=== PATIENT | female | born 1985 | race Caucasian/White ===

== ENCOUNTER 2017-07-02 11:14 | Emergency (ER) | payer BC ==
[2017-07-02 11:27] VITALS: BP 132/79
--- NOTE | 2017-07-02 11:57 | EDM.PDOC ---
ED HPI GENERAL MEDICAL PROBLEM - General Chief Complaint: Allergic Reaction Stated Complaint: Hives Time Seen by Provider: 07/02/17 11:40 Source of Information: Reports: Patient, RN Notes Reviewed History Limitations: Reports: No Limitations - History of Present Illness INITIAL COMMENTS - FREE TEXT/NARRATIVE: 31 year old female presents to the ED with complaints of itching to her chest, back, and upper extremities. The symptoms started yesterday. She just finished a 10 day course of Bactrim DS for otitis externa. She denies history of allergy to sulfa antibiotics. She reports eating crab on Monday night and sitting in a hot tub on Monday. She has no symptoms to her lower extremities. She denies throat swelling, difficulty swallowing, shortness of breath, or wheezing. 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 cleft lip- mom. paralyzed palate- sister Other Musculoskeletal Family History: chondro sarcoma- sister Oncologic: Reports: Prostate Other Oncologic Family History: father - Tobacco Use Smoking Status *Q: Never Smoker Second Hand Smoke Exposure: No - Alcohol Use Days Per Week of Alcohol Use: 0 - Recreational Drug Use Recreational Drug Use: No ED ROS ALLERGIC REACTION - Review of Systems Review Of Systems: See Below Constitutional: Reports: No Symptoms. Denies: Fever, Chills, Diaphoresis HEENT: Reports: No Symptoms. Denies: Throat Pain, Throat Swelling Respiratory: Reports: No Symptoms. Denies: Shortness of Breath, Wheezing Cardiovascular: Reports: No Symptoms. Denies: Chest Pain GI/Abdominal: Reports: No Symptoms. Denies: Abdominal Pain, Nausea, Vomiting Skin: Reports: Rash, Urticaria ED EXAM GENERAL NO PERIP PULSE - Physical Exam Exam: See Below Exam Limited By: No Limitations General Appearance: Alert, WD/WN, No Apparent Distress Ears: Normal External Exam, Normal Canal, Hearing Grossly Normal, Normal TMs Throat/Mouth: Normal Inspection, Normal Lips, Normal Oropharynx, Normal Voice, No Airway Compromise Head: Atraumatic, Normocephalic Neck: Normal Inspection, Supple, Non-Tender, Full Range of Motion Respiratory/Chest: No Respiratory Distress, Lungs Clear, Normal Breath Sounds, No Accessory Muscle Use, Chest Non-Tender Cardiovascular: Regular Rate, Rhythm, No Murmur Neurological: Alert, Normal Cognition Skin Exam: Warm, Dry, Intact, Rash (diffuse non-raised rash to trunk and upper extremities. No wheels or hives. ) Course - Vital Signs Last Recorded V/S: Last Vital Signs Temp 98.1 F 07/02/17 11:22 Pulse 74 07/02/17 11:22 Resp BP 132/79 07/02/17 11:22 Pulse Ox 99 07/02/17 11:22 - Re-Assessments/Exams Free Text/Narrative Re-Assessment/Exam: Patient was offered prednisone, however she is having surgery on her knee in a couple weeks and was instructed not to take anti-inflammatories. We discussed various options. She opted to utilize supportive care. She was educated on return precautions. I do not feel this is related to an allergy to Bactrim and I explained this to the patient. She was instructed to f/u if not improved in 2- 3 days. Departure - Departure Time of Disposition: 11:53 Disposition: Home, Self-Care 01 Condition: Good Clinical Impression: Urticaria - Discharge Information Referrals: Leia Sloan GEOPHYSICAL PROSPECTING SURVEYOR [Primary Care Provider] - Forms: ED Department Discharge Additional Instructions: Benadryl 1-2 tabs every 6 hours as needed for itching Pepcid 20mg twice a day for 7 days Cetaphil body cream to body 2-3 times a day Anti-itch cream to itchy areas Follow-up with your primary care provider in 2-3 days if not improved.
== END 2017-07-02 12:09 | disposition home or self-care (01) ==
LOC: JD.ED 11:14
DX: L50.9 Urticaria, unspecified (principal); Z98.890 Other specified postprocedural states
CPT/HCPCS: 99282; 99283

== ENCOUNTER 2017-07-13 10:18 | Day surgery (SDC) | payer BC ==
[~2017-07-13 10:18] MED LIST: Dexamethasone 4 MG/ML 5 ML MDV ONE; HYDROmorphone 1 MG/ML Syringe ONE; Ketorolac 30 MG/ML SDV ONE; Lactated Ringers 1,000 ML IV SCH; Lactated Ringers 1,000 ML ONE; Lidocaine 1% 4 ML ONE; Lidocaine 1%/Sod Bicarbonate in NS 8.4% 1 ML Syringe PRN; Midazolam 1 MG/ML 2 ML SDV ONE; Ondansetron 4 MG/2 ML SDV ONE; Propofol 200 MG/20 ML SDV ONE; Sodium Chloride 0.9% 10 ML Syringe FLUSH PRN; ceFAZolin 1 GM Vial ONE; fentaNYL 100 MCG/2 ML SDV ONE; fentaNYL 250 MCG/5 ML SDV ONE
--- NOTE | 2017-07-13 10:43 | PCM.PREANE ---
Preanesthetic Assessment - Anesthesia/Transfusion/Family Hx Anesthesia History: Prior Anesthesia Without Reaction Family History of Anesthesia Reaction: No Transfusion History: No Prior Transfusion(s) Intubation History: Unknown - Review of Systems General: No Symptoms Pulmonary: No Symptoms Cardiovascular: No Symptoms Gastrointestinal: No Symptoms Neurological: No Symptoms, Tingling (Right CTS noted which started with and continues to come back on occasion.) Other: Reports: Sinus Problem (allergic rhinits) - Physical Assessment NPO Status Date: 07/12/17 NPO Status Time: 18:00 Pulse: 83 O2 Sat by Pulse Oximetry: 97 Respiratory Rate: 16 Blood Pressure: 144/92 Temperature: 36.9 C Vital Signs: Last Vital Signs Temp 36.9 C 07/13/17 10:20 Pulse 83 07/13/17 10:20 Resp 16 07/13/17 10:20 BP 144/92 H 07/13/17 10:20 Pulse Ox 97 07/13/17 10:20 Height: 1.65 m Weight: 115.212 kg ASA Class: 2 Mental Status: Alert & Oriented x3 Airway Class: Mallampati = 2 Dentition: Reports: Normal Dentition, Caries Thyro-Mental Finger Breadths: 3 Mouth Opening Finger Breadths: 3 ROM/Head Extension: Full Lungs: Clear to Auscultation, Normal Respiratory Effort Cardiovascular: Regular Rate, Regular Rhythm, No Murmurs - Lab Values: Laboratory Last Values Urine HCG, Qual Negative (NEGATIVE) 07/13/17 10:22 All lab values reviewed and noted and within acceptable ranges to proceed with scheduled procedure. - Allergies Allergies/Adverse Reactions: Allergies Allergy/AdvReac Type Severity Reaction Status Date / Time No Known Allergies Allergy Verified 07/12/17 15:03 - Anesthesia Plan Pre-Op Medication Ordered: None - Acknowledgements Anesthesia Type Planned: General Anesthesia Pt an Appropriate Candidate for the Planned Anesthesia: Yes Alternatives and Risks of Anesthesia Discussed w Pt/Guardian: Yes Pt/Guardian Understands and Agrees with Anesthesia Plan: Yes PreAnesthesia Questionnaire HEENT History: Reports: Allergic Rhinitis, Impaired Vision, Otitis Media Other HEENT History: wears glasses, pharyngitis Cardiovascular History: Reports: None Respiratory History: Reports: None Gastrointestinal History: Reports: None Genitourinary History: Reports: None SPACE BUYER History: Reports: Dysfunctional Uterine Bleeding, Musculoskeletal History: Reports: Other (See Below) Other Musculoskeletal History: L knee pain, medial meniscus tear Neurological History: Reports: None Psychiatric History: Reports: None Endocrine/Metabolic History: Reports: Obesity/BMI 30+ Hematologic History: Reports: None Immunologic History: Reports: None Oncologic (Cancer) History: Reports: None Dermatologic History: Reports: None - Infectious Disease History Infectious Disease History: Reports: None - Past Surgical History Head Surgeries/Procedures: Reports: None HEENT Surgical History: Reports: Oral Surgery, Tonsillectomy Cardiovascular Surgical History: Reports: None Respiratory Surgical History: Reports: None GI Surgical History: Reports: None Female Surgical History: Reports: Section Neurological Surgical History: Reports: None Musculoskeletal Surgical History: Reports: None Oncologic Surgical History: Reports: None Dermatological Surgical History: Reports: None - SUBSTANCE USE Smoking Status *Q: Never Smoker Tobacco Use Within Last Twelve Months: No Second Hand Smoke Exposure: No Days Per Week of Alcohol Use: 0 Recreational Drug Use History: No - HOME MEDS Home Medications: Home Meds Vit W-Ca,Fe,FA(<1 mg) [ Vitamins] 1 each PO DAILY #100 tablet 03/25/16 [Rx] Calcium Carbonate [Calcium] 2 tab PO DAILY 07/12/17 [History] Cholecalciferol (Vitamin D3) [Vitamin D3] 5,000 unit PO DAILY 07/12/17 [History] L.acidoph,Paracasei, B.lactis [Probiotic] 1 cap PO DAILY PRN 07/12/17 [History] Acetaminophen/HYDROcodone [[place] 325-5 MG] 1 - 2 tab PO Q6H PRN #40 tablet 07/13 [Rx] Aspirin 325 mg PO BID #84 tablet 07/13/17 [Rx] - CURRENT (IN HOUSE) MEDS Current Meds: Current Medications Lactated Ringer's (Ringers, Lactated) 1,000 mls @ 125 mls/hr IV ASDIRECTED CRAIG Stop: 07/13/17 23:00 Lidocaine/Sodium Bicarbonate (Buffered Lidocaine 1% In Ns 8.4%) 0.25 ml .XX ONETIME PRN PRN Reason: Prior to IV Start Stop: 07/13/17 18:00 Sodium Chloride (Saline Flush) 10 ml FLUSH ASDIRECTED PRN PRN Reason: Keep Vein Open Stop: 07/13/17 18:00 Discontinued Medications Cefazolin Sodium (Ancef) Confirm Administered Dose 2 gm .ROUTE .ST-MED ONE Stop: 07/13/17 09:03 Dexamethasone (Dexamethasone) Confirm Administered Dose 20 mg .ROUTE .ST-MED ONE Stop: 07/13/17 09:03 Fentanyl (Sublimaze) Confirm Administered Dose 250 mcg .ROUTE .ST-MED ONE Stop: 07/13/17 09:03 Fentanyl (Sublimaze) Confirm Administered Dose 100 mcg .ROUTE .ST-MED ONE Stop: 07/13/17 09:19 Hydromorphone HCl (Dilaudid) Confirm Administered Dose 1 mg .ROUTE .ST-MED ONE Stop: 07/13/17 09:13 Lidocaine HCl (Xylocaine-Mpf 1%) Confirm Administered Dose 4 mls @ as [facility] Stop: 07/13/17 09:03 Lactated Ringer's (Ringers, Lactated) Confirm Administered Dose 1,000 mls @ as directed .ROUTE .[facility] ONE Stop: 07/13/17 09:03 Ketorolac Tromethamine (Toradol) Confirm Administered Dose 30 mg .ROUTE .ST- MED ONE Stop: 07/13/17 09:03 Midazolam HCl (Versed 1 Mg/Ml) Confirm Administered Dose 2 mg .ROUTE .ST-MED ONE Stop: 07/13/17 09:03 Ondansetron HCl (Zofran) Confirm Administered Dose 8 mg .ROUTE .ST-MED ONE Stop: 07/13/17 09:03 Propofol (Diprivan 20 Ml) Confirm Administered Dose 200 mg .ROUTE .ST-MED ONE Stop: 07/13/17 08:42
[2017-07-13] MEDS ORDERED: Bupivacaine 0.25% 30 ML SDV ONE (11:08)
[2017-07-13] MEDS ORDERED: EPINEPHrine 1 MG/ML 30 ML MDV ONE (11:08)
[2017-07-13] MEDS ORDERED: fentaNYL 250 MCG/5 ML SDV ONE (11:56)
[2017-07-13] MEDS ORDERED: Ondansetron 4 MG/2 ML SDV IVPUSH PRN (11:57)
[2017-07-13] MEDS ORDERED: fentaNYL 100 MCG/2 ML SDV IVPUSH PRN (11:57)
[2017-07-13] MEDS ORDERED: Albuterol 0.083% 2.5 MG/3 ML Neb Soln NEB PRN (11:57)
[2017-07-13] MEDS ORDERED: Propofol 200 MG/20 ML SDV ONE (11:57)
[2017-07-13] MEDS ORDERED: Phenylephrine 1 MG in Sodium Chloride 0.9% 10 ML IV SCH (12:00)
[2017-07-13] MEDS ORDERED: Albuterol 6.7 GM Inhaler INH ONE (12:28)
[2017-07-13] MEDS: HYDROmorphone 0.5 MG/0.5 ML Syringe IVPUSH PRN ×2 (12:38→13:03)
--- NOTE | 2017-07-13 12:42 | PCM.POSTAN ---
POST ANESTHESIA ASSESSMENT - MENTAL STATUS Mental Status: Alert - VITAL SIGNS Pulse Rate: 84 SaO2: 97 Resp Rate: 9 Blood Pressure: 137/79 Temperature: 36.3 C - RESPIRATORY Respiratory Status: Respiratory Rate WNL, Airway Patent, O2 Saturation Stable, Supplemental Oxygen - CARDIOVASCULAR CV Status: Pulse Rate WNL, Blood Pressure Stable - GASTROINTESTINAL GI Status: No Symptoms - POST OP HYDRATION Hydration Status: Adequate & Stable
[2017-07-13] MEDS ORDERED: Acetaminophen/HYDROcodone 325-5 MG Tab PO PRN (12:55)
--- NOTE | 2017-07-13 13:45 | PCM48HPAN ---
Post Anesthesia Note - EVALUATION WITHIN 48HRS OF ANESTHETIC Vital Signs in Normal Range: Yes Patient Participated in Evaluation: Yes Respiratory Function Stable: Yes Airway Patent: Yes Cardiovascular Function Stable: Yes Hydration Status Stable: Yes Pain Control Satisfactory: Yes Nausea and Vomiting Control Satisfactory: Yes Mental Status Recovered: Yes
[2017-07-13 14:32] VITALS: BP 138/73
--- NOTE | 2017-07-18 07:16 | PCM.OPNOTE ---
- General Post-Op/Procedure Note Date of Surgery/Procedure: 07/13/17 Operative Procedure(s): left knee video arthroscopy with partial medial meniscectomy Pre Op Diagnosis: left knee medial meniscus tear Post-Op Diagnosis: Same Anesthesia Technique: General LMA, Local Primary Surgeon: Elier Valerio Anesthesia Provider: Sanaz Macias Vacuum Pan Operator: Zenaida Butts in mLs: 5 Complications: None Condition: Good
--- NOTE | 2017-07-18 07:45 | OR ---
DATE OF OPERATION: 07/13/2017 SURGEON: Elier Valerio MD OPERATION PERFORMED: Left knee video arthroscopy with partial medial meniscectomy. PREOPERATIVE DIAGNOSIS: Left knee medial meniscus tear. POSTOPERATIVE DIAGNOSIS: Left knee medial meniscus tear. ANESTHESIA: General LMA with local. ANESTHESIA PROVIDER: Sanaz Macias CRNA OBSTETRICAL NURSE: Zenaida Butts PA-C. ESTIMATED BLOOD LOSS: Less than 5 mL. COMPLICATIONS: None. CONDITION: Stable. DESCRIPTION OF PROCEDURE: The patient was identified in the preop holding area. Proper site was marked and identified by the surgeon. The patient was taken back to the operating theater where after adequate anesthesia, the patient's right lower extremity was placed in a well leg cesar. The left lower extremity had a nonsterile tourniquet applied and was then placed in a C-clamp cesar. The foot of the bed was then lowered. The left lower extremity was then sterilely prepped and draped in the usual sterile fashion. OR time-out was performed. The patient received 2 g IV Ancef. The left lower extremity was then exsanguinated. Tourniquet was insufflated to 250 mmHg. Standard anterolateral portal was created and scope trocar was introduced. The patellofemoral joint showed no signs of chondromalacia. There were no loose or foreign bodies in the mediolateral gutter. Attention was turned to the medial compartment. With the use of a spinal needle, anteromedial portal was created. The patient was noted to have a large bucket-handle tear of the inner 3rd of the meniscus that was flipped up in the posterior portion of the joint with a very little attachment left. At this time, it was found to be irreparable. At this time, it was cut to the attachment of the posterior horn and with a grasper I was able to grab out the meniscus in hole and take it out. The rest of it was shaved to a smooth border. ACL was found intact in the notch. There were no signs chondromalacia or meniscus tear to the lateral compartment. At this time, excess saline was drained from the knee. A 3-0 nylon simple suture was used for closure of the skin. The patient was placed in a sterile soft dressing, was sent to PACU in stable condition. MMODAL /[id number]
== END 2017-07-13 14:25 | disposition home or self-care (01) ==
LOC: JD.SDS 10:18
PROVIDERS: ATTEND Orthopaedic Surgery
DX: S83.212A Bucket-handle tear of medial meniscus, current injury, left knee, initial encounter (principal); E66.9 Obesity, unspecified; Z79.899 Other long term (current) drug therapy; Z98.890 Other specified postprocedural states; Z78.9 Other specified health status; Z68.42 Body mass index [BMI] 45.0-49.9, adult; X58.XXXA Exposure to other specified factors, initial encounter
CPT/HCPCS: 29881; 81025; A9270; J0171; J0690; J1100; J1170; J1885; J2250; J2405; J3010; J3490; J7120; 01400; J2704

== ENCOUNTER 2017-10-01 08:59 | Emergency (ER) | payer BC, OTHER ==
[2017-10-01 09:10] VITALS: BP 128/80
[2017-10-01] MEDS ORDERED: Ondansetron 4 MG/2 ML SDV IVPUSH ONE (09:26)
[2017-10-01] MEDS ORDERED: Sodium Chloride 0.9% 1,000 ML IV ONE (09:26)
--- NOTE | 2017-10-01 12:16 | EDM.PDOC ---
ED HPI GENERAL MEDICAL PROBLEM - General Chief Complaint: Abdominal Pain Stated Complaint: ABDOMINAL PAIN VOMITING AND DIARRHEA Time Seen by Provider: 10/01/17 09:11 Source of Information: Reports: Patient, Family (), RN Notes Reviewed History Limitations: Reports: No Limitations - History of Present Illness INITIAL COMMENTS - FREE TEXT/NARRATIVE: The patient states that she is approximately 9 weeks . LMP 07/19/2017. ARIAN 05/08/2017. . She is undergone to obstruct her current ultrasounds, the first on 09/01/2017, the second on 09/22/2017, which demonstrated a SLIUP at 7 weeks 5 days. She states that she developed upper abdominal cramps on and off yesterday, then nausea and emesis around 05:00 this morning, then watery diarrhea around 06:30. No recent fever. No urinary symptoms. She states that she has taken Gas-X and Tums, with no relief whatsoever. She denies eating any spoiled food recently. No ill contacts. No recent travel. No recent antibiotics. No prior similar symptoms. The patient's PCP is Leia Sloan. Her Churn Operator Margarine is Dr. Zapata. Upper Abdomen Pain Score (Numeric/FACES): 8 - Related Data Allergies Allergy/AdvReac Type Severity Reaction Status Date / Time No Known Allergies Allergy Verified 10/01/17 09:09 Home Meds: Home Meds Vit W-Ca,Fe,FA(<1 mg) [ Vitamins] 1 each PO DAILY #100 tablet 03/25/16 [Rx] Calcium Carbonate [Calcium] 2 tab PO DAILY 07/12/17 [History] Cholecalciferol (Vitamin D3) [Vitamin D3] 5,000 unit PO DAILY 07/12/17 [History] L.acidoph,Paracasei, B.lactis [Probiotic] 1 cap PO DAILY PRN 07/12/17 [History] Ondansetron [Zofran ODT] 1 tab PO Q8H PRN #10 tab.dis 10/01/17 [Rx] Past Medical History HEENT History: Reports: Impaired Vision Other 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 cleft lip- mom. 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) ED ROS GENERAL - Review of Systems Review Of Systems: See Below Constitutional: Reports: No Symptoms HEENT: Reports: No Symptoms Respiratory: Reports: No Symptoms Cardiovascular: Reports: No Symptoms Endocrine: Reports: No Symptoms GI/Abdominal: Reports: No Symptoms : Reports: No Symptoms Musculoskeletal: Reports: No Symptoms Skin: Reports: No Symptoms Neurological: Reports: No Symptoms Psychiatric: Reports: No Symptoms Hematologic/Lymphatic: Reports: No Symptoms Immunologic: Reports: No Symptoms ED EXAM, GI/ABD - Physical Exam Exam: See Below Exam Limited By: No Limitations General Appearance: Alert, WD/WN, No Apparent Distress Eyes: Bilateral: Normal Appearance, EOMI Ears: Normal External Exam, Hearing Grossly Normal Nose: Normal Inspection, No Blood Throat/Mouth: Normal Inspection, Normal Lips, Normal Voice, No Airway Compromise Head: Atraumatic, Normocephalic Neck: Normal Inspection, Full Range of Motion Respiratory/Chest: No Respiratory Distress, Lungs Clear, Normal Breath Sounds, No Accessory Muscle Use Cardiovascular: Normal Peripheral Pulses, Regular Rate, Rhythm, No Gallop, No JVD, No Murmur, No Rub GI/Abdominal Exam: Normal Bowel Sounds, Soft, Non-Tender, No Organomegaly, No Distention, No Abnormal Bruit, Pelvis Stable, Mass (Gravid uterus consistent with dates), Other (Obese) (Female) Exam: Deferred Rectal (Female) Exam: Deferred Back Exam: Normal Inspection, Full Range of Motion. No: CVA Tenderness (L), CVA Tenderness (R) Extremities: Normal Inspection, Normal Range of Motion, No Pedal Edema, Normal Capillary Refill Neurological: Alert, Oriented, Normal Cognition, No Motor/Sensory Deficits Psychiatric: Normal Affect Skin Exam: Warm, Dry, Intact, Normal Color, No Rash Course - Vital Signs Last Recorded V/S: Last Vital Signs Temp 36.9 C 10/01/17 09:06 Pulse 82 10/01/17 09:06 Resp 18 10/01/17 09:06 BP 128/80 10/01/17 09:06 Pulse Ox 98 10/01/17 09:06 - Orders/Labs/Meds Labs: Laboratory Tests 10/01/17 10/01/17 10/01/17 Range/Units 09:35 09:35 10:44 WBC 9.02 (3.98-10.04) K/mm3 RBC 4.49 (3.98-5.22) M/mm3 Hgb 13.0 (11.2-15.7) gm/L Hct 38.3 (34.1-44.9) % MCV 85.3 (79.4-94.8) fl MCH 29.0 (25.6-32.2) pg MCHC 33.9 (32.2-35.5) g/dl RDW Std Deviation 41.5 (36.4-46.3) fL Plt Count 278 (182-369) K/mm3 MPV 9.0 L (9.4-12.3) fl Neutrophils % (Manual) 71 H (40-60) % Band Neutrophils % 1 (0-10) % Lymphocytes % (Manual) 21 (20-40) % Atypical Lymphs % 0 % Monocytes % (Manual) 6 (2-10) % Eosinophils % (Manual) 1 (0.7-5.8) % Basophils % (Manual) 0 L (0.1-1.2) Platelet Estimate Adequate RBC Morph Comment Normal Sodium 137 (136-145) mEq/L Potassium 3.8 (3.5-5.1) mEq/L Chloride 104 (98-107) mEq/L Carbon Dioxide 22 (21-32) mEq/L Anion Gap 14.8 (5-15) BUN 11 (7-18) mg/dL Creatinine 0.8 (0.55-1.02) mg/dL Est Cr Clr Drug Dosing 93.37 mL/min Estimated GFR (MDRD) > 60 (>60) mL/min BUN/Creatinine Ratio 13.8 L (14-18) Glucose 118 H (74-106) mg/dL Calcium 8.7 (8.5-10.1) mg/dL Magnesium 1.8 (1.8-2.4) mg/dl Total Bilirubin 0.2 (0.2-1.0) mg/dL AST 17 (15-37) U/L ALT 22 (14-59) U/L Alkaline Phosphatase 62 (46-116) U/L Total Protein 6.9 (6.4-8.2) g/dl Albumin 3.4 (3.4-5.0) g/dl Globulin 3.5 gm/dL Albumin/Globulin Ratio 1.0 (1-2) Urine Color Yellow (Yellow) Urine Appearance Clear (Clear) Urine pH 6.5 (5.0-8.0) Ur Specific [place] 1.015 (1.005-1.030) Urine Protein Negative (Negative) Urine Glucose (UA) Negative (Negative) Urine Ketones Negative (Negative) Urine Occult Blood Negative (Negative) Urine Nitrite Negative (Negative) Urine Bilirubin Negative (Negative) Urine Urobilinogen 0.2 (0.2-1.0) Ur Leukocyte Esterase Negative (Negative) Urine RBC 0-5 (0-5) /hpf Urine WBC 0-5 (0-5) /hpf Ur Epithelial Cells 0-5 (0-5) /hpf Urine Bacteria Few (FEW) /hpf Urine Mucus Few (FEW) /hpf Meds: Medications Discontinued Medications Generic Name Dose Route Start Last Admin Trade Name Freq PRN Reason Stop Dose Admin Sodium Chloride 1,000 mls @ 999 mls/hr 10/01/17 09:26 10/01/17 09:41 Normal Saline IV 10/01/17 10:26 999 mls/hr ONETIME ONE Administration Ondansetron HCl 4 mg 10/01/17 09:26 10/01/17 09:40 Zofran IVPUSH 10/01/17 09:27 4 mg ONETIME ONE Administration - Re-Assessments/Exams Free Text/Narrative Re-Assessment/Exam: 10/01/17 12:11 Test results discussed with the patient and her . The patient states that she is feeling a lot better following IV fluid and IV Zofran. Today's workup finds no significant abnormalities. I will discharge her home with a prescription for Zofran, that the patient would prefer to fill tomorrow, after discussing with Dr. Zapata. In the meantime, I will have the patient stay well hydrated with Gatorade or Powerade, and if she is hungry, to eat a bland diet. Departure - Departure Time of Disposition: 12:12 Disposition: Home, Self-Care 01 Condition: Good Clinical Impression: Viral gastroenteritis, - Discharge Information Prescriptions: Ondansetron [Zofran ODT] 1 tab PO Q8H PRN #10 tab.dis PRN Reason: Nausea/Vomiting Instructions: Viral Gastroenteritis, Adult Referrals: Leia Sloan NP [Primary Care Provider] - Carl Zapata MD [Physician] - Forms: ED Department Discharge Additional Instructions: You were seen in the emergency room for nausea, vomiting, watery diarrhea, and upper abdominal cramps, while . Workup in the ER included blood work and a urinalysis. Your entire workup was normal. You do not have an elevated white blood cell count. You are not anemic. Your electrolytes are normal. You are not dehydrated. Your kidney function is normal. You do not have a urinary tract infection. The cause of your symptoms is gastroenteritis, MOST LIKELY viral. We recommend you stay well hydrated with Gatorade or Powerade. If you are hungry, we recommend a bland diet, such as rice, oatmeal, applesauce , or toast. You have been prescribed the anti-nausea medicine Zofran. Dissolve 1 tablet on your tongue up to every 8 hours, as needed for nausea/vomiting. We recommend you notify the office of Dr. Zapata of your ER visit, tomorrow, 10/02/2017. If any other problems, please do not hesitate to return to the ER.
== END 2017-10-01 12:20 | disposition home or self-care (01) ==
LOC: JD.ED 08:59
DX: O99.89 Other specified diseases and conditions complicating pregnancy, childbirth and the puerperium (principal); A08.4 Viral intestinal infection, unspecified; Z3A.09 9 weeks gestation of pregnancy
CPT/HCPCS: 36415; 80053; 81001; 83735; 85025; 96361; 96374; 99284; J2405; J7040

== ENCOUNTER 2020-03-01 09:52 | Emergency (ER) | payer BC ==
[2020-03-01 10:07] VITALS: BP 139/84; PULSE 90
--- NOTE | 2020-03-01 10:17 | EDM.PDOC ---
ED HPI GENERAL MEDICAL PROBLEM - General Chief Complaint: INSURANCE APPLICATION INVESTIGATOR Problem Stated Complaint: 8 WKS PG & BLEEDING SOME Time Seen by Provider: 03/01/20 10:14 Source of Information: Reports: Patient History Limitations: Reports: No Limitations - History of Present Illness INITIAL COMMENTS - FREE TEXT/NARRATIVE: 34-year-old female presents to the ED with bright red bleeding per vagina. Her obstetrical history is somewhat complicated. She believes her last known menstrual period was around December 17, 2019. However she had a very heavy period the first part of January and then it stopped 3 days later she had further bleeding which then precipitated a INSURANCE APPLICATION INVESTIGATOR visit. Of note she has been trying to achieve a . She was identified to be in fact at that visit. 3 days later her quantitative beta-hCG had quadrupled and appears that she had retained . Therefore by dates she would be near 8 weeks completion. This morning while making breakfast for children she felt a gush of bright red blood per vagina she states enough to cover the palm of her hand on her underwear. No clots were evident. When she went to the bathroom here there appeared to be only a trickle of bleeding. She has diffuse lower abdominal pressure discomfort but not true cramping. Of note she has had 2 previous pregnancies delivered by by due to breech presentation. Therefore she is 3 para 2. Her estimated date of confinement has not been identified at this time as she is not had any ultrasounds. Onset: Today, Sudden Onset Date: 03/01/20 Onset Time: 09:20 Duration: Minutes: Location: Reports: Other (Bright red bleeding per vagina in ) Quality: Reports: Other (Bright red bleeding in first semester ) Severity: Moderate Improves with: Reports: None, Other ( reduced to a trickle) Worsens with: Reports: None Context: Reports: Other (Known to be around 8 weeks gestation based on last menstrual period of December 17, 2019). Denies: Activity ( since initial onset.), Exercise, Lifting, Sick Contact, Trauma Associated Symptoms: Reports: Other (Mild lower abdominal pressure discomfort.) Treatments THIRD COOK: Reports: Other (see below) (None.) - Related Data Allergies Allergy/AdvReac Type Severity Reaction Status Date / Time No Known Allergies Allergy Verified 03/01/20 10:07 Past Medical History HEENT History: Reports: Impaired Vision, Other (See Below) Other HEENT History: wears glasses; chronic ear infections Cardiovascular History: Reports: None, Hypertension (Developed hypertension after delivery of the fetus. She is currently on metoprolol 50 mg daily.) Respiratory History: Reports: None Gastrointestinal History: Reports: None Genitourinary History: Reports: None INSURANCE APPLICATION INVESTIGATOR History: Reports: : 3 Para: 2 (Pregnancies were delivered by due to breech presentation.) LMP (Approximate): (Last known menstrual period was estimated to be around December 16. This would make her currently 8 weeks ) Musculoskeletal History: Reports: Other (See Below) Other Musculoskeletal History: L knee pain, medial meniscus tear Neurological History: Reports: None Psychiatric History: Reports: None Endocrine/Metabolic History: Reports: Obesity/BMI 30+ Hematologic History: Reports: None Immunologic History: Reports: None Oncologic (Cancer) History: Reports: None Dermatologic History: Reports: None - Infectious Disease History Infectious Disease History: Reports: None - Past Surgical History Head Surgeries/Procedures: Reports: None HEENT Surgical History: Reports: Oral Surgery, Tonsillectomy Cardiovascular Surgical History: Reports: None Respiratory Surgical History: Reports: None GI Surgical History: Reports: None Female Surgical History: Reports: Section Neurological Surgical History: Reports: None Musculoskeletal Surgical History: Reports: Arthroscopic Knee Oncologic Surgical History: Reports: None Dermatological Surgical History: Reports: None Social & Family History - Family History Other HEENT Family History: acoustic neuroma- mom. cleft lip- mom. 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 Denies: Fever, Chills, Malaise, Weakness HEENT: Reports: No Symptoms Respiratory: Reports: No Symptoms Cardiovascular: Reports: No Symptoms Endocrine: Reports: No Symptoms GI/Abdominal: Reports: Abdominal Pain (Mild suprapubic pressure discomfort but no cramping) : Reports: Frequency, Other (Heavy bleeding per vagina this morning. Spontaneous onset) Musculoskeletal: Reports: No Symptoms Skin: Reports: No Symptoms Neurological: Reports: No Symptoms Psychiatric: Reports: No Symptoms Hematologic/Lymphatic: Reports: No Symptoms Immunologic: Reports: No Symptoms ED EXAM - Physical Exam Exam: See Below Exam Limited By: No Limitations General Appearance: Alert, WD/WN, Anxious, Mild Distress, Other (Temperature is 36.8 with heart rate of 90. Respiratory to 16 with O2 sats of 97% on room air. BP is 139/84) Eye Exam: Bilateral Eye: Normal Inspection, PERRL Respiratory/Chest: No Respiratory Distress, Lungs Clear, Normal Breath Sounds, No Accessory Muscle Use Cardiovascular: Normal Peripheral Pulses, Regular Rate, Rhythm, No Edema, No Gallop, No Murmur GI/Abdominal Exam: Normal Bowel Sounds, Soft, Non-Tender, No Organomegaly, No Abnormal Bruit, No Mass. No: Guarding, Rigid, Rebound, Tender (Female) Exam: Other (Minimal amount of blood at the introitus. Bimanual exam shows the uterus to be retroverted approximately 8 weeks in size cervix is closed. There was old blood on the gloved fingers.) Back Exam: Normal Inspection, Full Range of Motion. No: CVA Tenderness (L), CVA Tenderness (R) Extremities: Normal Inspection, Normal Range of Motion, Non-Tender, No Pedal Edema Neurological: Alert, Oriented, CN II-XII Intact, Normal Cognition, Normal Gait Psychiatric: Anxious Skin Exam: Warm, Dry, Intact, Normal Color, No Rash Course - Vital Signs Last Recorded V/S: Last Vital Signs Temp 36.8 C 03/01/20 10:03 Pulse 90 03/01/20 10:03 Resp 16 03/01/20 10:03 BP 139/84 03/01/20 10:03 Pulse Ox 97 03/01/20 10:03 - Orders/Labs/Meds Orders: Active Orders 24 hr Category Date Time Status OB Transvaginal [US] Stat Exams 03/01/20 10:15 Taken Sodium Chloride 0.9% [Normal Saline] 1,000 ml Med 03/01/20 10:30 Active IV ASDIRECTED Medication Orders Sodium Chloride (Normal Saline) 1,000 mls @ 125 mls/hr IV ASDIRECTED RCAIG Labs: Laboratory Tests 03/01/20 03/01/20 03/01/20 Range/Units 10:41 10:41 10:41 WBC 8.03 (3.98-10.04) K/mm3 RBC 4.66 (3.98-5.22) M/mm3 Hgb 13.7 (11.2-15.7) gm/dl Hct 39.8 (34.1-44.9) % MCV 85.4 (79.4-94.8) fl MCH 29.4 (25.6-32.2) pg MCHC 34.4 (32.2-35.5) g/dl RDW Std Deviation 43.0 (36.4-46.3) fL Plt Count 264 (182-369) K/mm3 MPV 9.3 L (9.4-12.3) fl Neut % (Auto) 69.3 (34.0-71.1) % Lymph % (Auto) 24.0 (19.3-51.7) % [place] % (Auto) 4.4 L (4.7-12.5) % Eos % (Auto) 1.7 (0.7-5.8) Baso % (Auto) 0.2 (0.1-1.2) % Neut # (Auto) 5.56 (1.56-6.13) K/mm3 Lymph # (Auto) 1.93 (1.18-3.74) K/mm3 [place] # (Auto) 0.35 (0.24-0.36) K/mm3 Eos # (Auto) 0.14 (0.04-0.36) K/mm3 Baso # (Auto) 0.02 (0.01-0.08) K/mm3 Sodium 138 (136-145) mEq/L Potassium 3.7 (3.5-5.1) mEq/L Chloride 105 (98-107) mEq/L Carbon Dioxide 23 (21-32) mEq/L Anion Gap 13.7 (5-15) BUN 13 (7-18) mg/dL Creatinine 0.9 (0.55-1.02) mg/dL Est Cr Clr Drug Dosing 80.75 mL/min Estimated GFR (MDRD) > 60 (>60) mL/min BUN/Creatinine Ratio 14.4 (14-18) Glucose 104 (74-106) mg/dL Calcium 8.8 (8.5-10.1) mg/dL Total Bilirubin 0.4 (0.2-1.0) mg/dL AST 17 (15-37) U/L ALT 30 (14-59) U/L Alkaline Phosphatase 63 (46-116) U/L Total Protein 7.6 (6.4-8.2) g/dl Albumin 3.7 (3.4-5.0) g/dl Globulin 3.9 gm/dL Albumin/Globulin Ratio 1.0 (1-2) HCG, Quant mIU/mL Blood Type A POSITIVE Gel Antibody Screen Negative 03/01/20 Range/Units 10:41 WBC (3.98-10.04) K/mm3 RBC (3.98-5.22) M/mm3 Hgb (11.2-15.7) gm/dl Hct (34.1-44.9) % MCV (79.4-94.8) fl MCH (25.6-32.2) pg MCHC (32.2-35.5) g/dl RDW Std Deviation (36.4-46.3) fL Plt Count (182-369) K/mm3 MPV (9.4-12.3) fl Neut % (Auto) (34.0-71.1) % Lymph % (Auto) (19.3-51.7) % [place] % (Auto) (4.7-12.5) % Eos % (Auto) (0.7-5.8) Baso % (Auto) (0.1-1.2) % Neut # (Auto) (1.56-6.13) K/mm3 Lymph # (Auto) (1.18-3.74) K/mm3 [place] # (Auto) (0.24-0.36) K/mm3 Eos # (Auto) (0.04-0.36) K/mm3 Baso # (Auto) (0.01-0.08) K/mm3 Sodium (136-145) mEq/L Potassium (3.5-5.1) mEq/L Chloride (98-107) mEq/L Carbon Dioxide (21-32) mEq/L Anion Gap (5-15) BUN (7-18) mg/dL Creatinine (0.55-1.02) mg/dL Est Cr Clr Drug Dosing mL/min Estimated GFR (MDRD) (>60) mL/min BUN/Creatinine Ratio (14-18) Glucose (74-106) mg/dL Calcium (8.5-10.1) mg/dL Total Bilirubin (0.2-1.0) mg/dL AST (15-37) U/L ALT (14-59) U/L Alkaline Phosphatase (46-116) U/L Total Protein (6.4-8.2) g/dl Albumin (3.4-5.0) g/dl Globulin gm/dL Albumin/Globulin Ratio (1-2) HCG, Quant 90625.0 mIU/mL Blood Type Gel Antibody Screen Meds: Medications Generic Name Dose Route Start Last Admin Trade Name Freq PRN Reason Stop Dose Admin Sodium Chloride 1,000 mls @ 125 mls/hr 03/01/20 10:30 Normal Saline IV ASDIRECTED CRAIG - Radiology Interpretation Free Text/Narrative:: 34-year-old female presents to the ED with sudden onset of bright red bleeding per vagina this morning while making breakfast for her children. She is known to be with last known menstrual. Estimated to be around December 17, 2019. However the has been complicated by a fairly large 4-day bleeding in early part of January which stopped and then 3 days later started to spot again per vagina. This precipitated an INSURANCE APPLICATION INVESTIGATOR visit and she was found to be . The quantitative beta-hCG has quadrupled within 3 to 4 days. She has not yet had an ultrasound. If we use the dates of in December this would make her around 8 weeks gestation but this is not for sure. Cervix is currently closed uterus is retroverted and feels to be about 8 weeks in size. And she will have quantitative beta-hCG repeated. She will have a type and screen although she states her blood type is a positive. She will have a transvaginal ultrasound to assess viability of . - Re-Assessments/Exams Free Text/Narrative Re-Assessment/Exam: 03/01/20 12:26 Hematology reveals a normal white count at 8.03. Auto differential shows 70% neutrophils. Hemoglobin is 13.7 with hematocrit of 39.8. Platelet count 264,000. Sodium is 138 with a potassium of 3.7. Chloride is 105 with a bicarb of 23. Anion gap is 13.7. BUN is 13 with a creatinine of 0.9. GFR remains greater than 60. Glucose is 104. Calcium is 8.8. Liver function is normal. Total protein is 7.6 with an albumin fraction of 3.7. Quantitative hCG is 10,063. Was discussed with Dr. Zapata as he happened to be in the department. He wishes to see her mid week to make sure that she is doing okay. Return to the ED if she has further heavy bleeding per vagina such as soaking a pad per hour for 2 consecutive hours or severe lower abdominal cramping pain. At this time an ultrasound there is no obvious reason for her to be bleeding per vagina. No subchorionic hemorrhage was identified. the has been dated at 6 weeks gestation. Exterior estimated date of confinement as October 25, 2020. There is a double cyst of the left ovary. Departure - Departure Time of Disposition: 12:14 Disposition: Home, Self-Care 01 Condition: Fair Clinical Impression: Threatened miscarriage in early - Discharge Information *PRESCRIPTION DRUG MONITORING PROGRAM REVIEWED*: Not Applicable *COPY OF PRESCRIPTION DRUG MONITORING REPORT IN PATIENT ANGELIQUE: Not Applicable Instructions: Vaginal Bleeding During , First Trimester, [id number] Referrals: Leia Sloan NP [Primary Care Provider] - Forms: ED Department Discharge Additional Instructions: Evaluation in the emergency room today in regards to sudden onset of acute bleeding per vagina while making breakfast for the children this morning. Persistent mild bleeding since that time. Uterus is retroverted and cervix was found to be closed on examination. Quantitative beta-hCG came back at 10,056 which is elevated compared to the last one that you had suggesting continued growth. Transvaginal ultrasound reveals a single gestation with dates of 5 weeks and 6 days. Estimated date of confinement is considered to be October. Heart rate was 124 bpm. Treatment therefore at this time is conservative and watchful waiting. Dr. Zapata would like to see you midweek next week. Please call his office to arrange an appointment time. You would need to return to the emergency department if you start to flow heavily per vagina eye enough to soak a pad per hour for 2 consecutive hours or if severe abdominal cramping occurs. No intercourse for 2 weeks as there is some concerns about this hormones and seminal fluid causing uterine contractions and miscarriage. Should not lift anything heavier than 10 pounds. Minimize housework such as vacuuming etc.. Sepsis Event Note - Evaluation Sepsis Screening Result: No Definite Risk - Focused Exam Vital Signs: Vital Signs Temp Pulse Resp BP Pulse Ox 03/01/20 10:03 36.8 C 90 16 139/84 97 Date Exam was Performed: 03/01/20 Time Exam was Performed: 12:22 - My Orders Last 24 Hours: My Active Orders 03/01/20 10:15 OB Transvaginal [US] Stat 03/01/20 10:30 Sodium Chloride 0.9% [Normal Saline] 1,000 ml IV ASDIRECTED - Assessment/Plan Last 24 Hours: My Active Orders 03/01/20 10:15 OB Transvaginal [US] Stat 03/01/20 10:30 Sodium Chloride 0.9% [Normal Saline] 1,000 ml IV ASDIRECTED
[2020-03-01] MEDS ORDERED: Sodium Chloride 0.9% 1,000 ML IV SCH (10:30)
--- NOTE | 2020-03-02 07:52 | US ---
Obstetrical ultrasound: Multiple real-time images were obtained transabdominally and transvaginally. Dates: LMP: LMP given as 01/07/20, ARIAN 10/04, gestational age 7 weeks 5 days Current ultrasound: ARIAN 10/25/20, gestational age 6 weeks 0 days Single intrauterine gestational sac is seen. pole is noted. Maternal left ovary shows 2 simple cysts measuring 3.6 cm and 7.1 cm. Right ovary appears within normal limits. Measurements: [place]-rump length: 0.34 cm - 6 weeks 0 days Heart rate: 125 bpm Impression: 1. Single intrauterine gestation. Dates as noted above. 2. 2 simple cyst within the maternal left ovary with largest measuring 7.1 cm. Diagnostic code #3 This report was dictated in MDT I agree with preliminary report from reny, finalized on 03/01/20, 1:17 PM Central Daylight Time
== END 2020-03-01 12:25 | disposition home or self-care (01) ==
LOC: JD.ED 09:52
DX: O20.0 Threatened abortion (principal); Z3A.01 Less than 8 weeks gestation of pregnancy
CPT/HCPCS: 36415; 76817; 76817-26; 80053; 84702; 85025; 86850; 86900; 86901; 99283; 99284-25

== ENCOUNTER 2020-03-12 18:28 | Emergency (ER) | payer BC ==
[2020-03-12 18:52] VITALS: BP 132/89; PULSE 71
--- NOTE | 2020-03-12 19:14 | EDM.PDOC ---
ED HPI GENERAL MEDICAL PROBLEM - General Chief Complaint: GLOBAL SALES MANAGER Problem Stated Complaint: 9 WKS -POSS MISCARRIAGE Time Seen by Provider: 03/12/20 18:48 Source of Information: Reports: Patient History Limitations: Reports: No Limitations - History of Present Illness INITIAL COMMENTS - FREE TEXT/NARRATIVE: Patient is a 34-year-old female approximately 8 weeks gestation who presents to the emergency department with acute onset of vaginal bleeding. She states that she was cooking dinner and felt a gush of blood. The amount of blood was significant after saturate through her pants. She had a similar occurrence as this approximately 11 days ago. She was seen in this emergency department at that time. Ultrasound and lab work was completed. At that time, the ultrasound showed a approximate 6-week gestation with an estimated due date of 10/25/2020. There was no cause of the bleeding identified on the ultrasound. Patient states that after this episode, the bleeding stopped the next day. She followed up with GLOBAL SALES MANAGER, Dr. Zapata approximately 2 days after that visit and everything was found to be normal. She has been doing well up until today. She denies any pelvic pain or cramping associated with this bleeding. - Related Data Allergies Allergy/AdvReac Type Severity Reaction Status Date / Time No Known Allergies Allergy Verified 03/01/20 10:07 Home Meds: Home Meds Folic Acid 1 mg PO DAILY 03/12/20 [History] Vit No.129/Iron/FA [ One Daily Tablet] 1 tab PO DAILY 03/12/20 [History] Past Medical History HEENT History: Reports: Impaired Vision, Other (See Below) Other HEENT History: wears glasses; chronic ear infections Cardiovascular History: Reports: None, Hypertension Respiratory History: Reports: None Gastrointestinal History: Reports: None Genitourinary History: Reports: None GLOBAL SALES MANAGER History: Reports: Musculoskeletal History: Reports: Other (See Below) Other Musculoskeletal History: L knee pain, medial meniscus tear Neurological History: Reports: None Psychiatric History: Reports: None Endocrine/Metabolic History: Reports: Obesity/BMI 30+ Hematologic History: Reports: None Immunologic History: Reports: None Oncologic (Cancer) History: Reports: None Dermatologic History: Reports: None - Infectious Disease History Infectious Disease History: Reports: None - Past Surgical History Head Surgeries/Procedures: Reports: None HEENT Surgical History: Reports: Oral Surgery, Tonsillectomy Cardiovascular Surgical History: Reports: None Respiratory Surgical History: Reports: None GI Surgical History: Reports: None Female Surgical History: Reports: Section Neurological Surgical History: Reports: None Musculoskeletal Surgical History: Reports: Arthroscopic Knee Oncologic Surgical History: Reports: None Dermatological Surgical History: Reports: None Social & Family History - Family History Other HEENT Family History: acoustic neuroma- mom. cleft lip- mom. 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 ED EXAM - Physical Exam Exam: See Below Exam Limited By: No Limitations General Appearance: Alert, WD/WN, No Apparent Distress Course - Vital Signs Last Recorded V/S: Last Vital Signs Temp 98.7 F 03/12/20 18:50 Pulse 71 03/12/20 18:50 Resp 20 03/12/20 18:50 BP 132/89 03/12/20 18:50 Pulse Ox 100 03/12/20 18:50 - Orders/Labs/Meds Orders: Active Orders 24 hr Category Date Time Status ABO/RH TYPE [BBK] Stat Lab 03/12/20 19:20 Received Labs: Laboratory Tests 03/12/20 03/12/20 03/12/20 Range/Units 19:20 19:20 19:27 WBC 8.70 (3.98-10.04) K/mm3 RBC 4.51 (3.98-5.22) M/mm3 Hgb 12.9 (11.2-15.7) gm/dl Hct 38.5 (34.1-44.9) % MCV 85.4 (79.4-94.8) fl MCH 28.6 (25.6-32.2) pg MCHC 33.5 (32.2-35.5) g/dl RDW Std Deviation 42.6 (36.4-46.3) fL Plt Count 300 (182-369) K/mm3 MPV 9.1 L (9.4-12.3) fl Neut % (Auto) 66.0 (34.0-71.1) % Lymph % (Auto) 26.1 (19.3-51.7) % [place] % (Auto) 5.7 (4.7-12.5) % Eos % (Auto) 1.7 (0.7-5.8) Baso % (Auto) 0.2 (0.1-1.2) % Neut # (Auto) 5.73 (1.56-6.13) K/mm3 Lymph # (Auto) 2.27 (1.18-3.74) K/mm3 [place] # (Auto) 0.50 H (0.24-0.36) K/mm3 Eos # (Auto) 0.15 (0.04-0.36) K/mm3 Baso # (Auto) 0.02 (0.01-0.08) K/mm3 Sodium 136 (136-145) mEq/L Potassium 3.6 (3.5-5.1) mEq/L Chloride 103 (98-107) mEq/L Carbon Dioxide 24 (21-32) mEq/L Anion Gap 12.6 (5-15) BUN 14 (7-18) mg/dL Creatinine 0.9 (0.55-1.02) mg/dL Est Cr Clr Drug Dosing 84.01 mL/min Estimated GFR (MDRD) > 60 (>60) mL/min BUN/Creatinine Ratio 15.6 (14-18) Glucose 95 (74-106) mg/dL Calcium 8.8 (8.5-10.1) mg/dL Total Bilirubin 0.2 (0.2-1.0) mg/dL AST 17 (15-37) U/L ALT 25 (14-59) U/L Alkaline Phosphatase 61 (46-116) U/L Total Protein 7.5 (6.4-8.2) g/dl Albumin 3.7 (3.4-5.0) g/dl Globulin 3.8 gm/dL Albumin/Globulin Ratio 1.0 (1-2) HCG, Quant 08873.0 mIU/mL Urine Color [place] H (Yellow) Urine Appearance Cloudy H (Clear) Urine pH 6.0 (5.0-8.0) Ur Specific [place] 1.020 (1.005-1.030) Urine Protein 1+ H (Negative) Urine Glucose (UA) Negative (Negative) Urine Ketones Negative (Negative) Urine Occult Blood 3+ H (Negative) Urine Nitrite Negative (Negative) Urine Bilirubin Negative (Negative) Urine Urobilinogen 0.2 (0.2-1.0) Ur Leukocyte Esterase Negative (Negative) Urine RBC >100 H (0-5) /hpf Urine WBC 0-5 (0-5) /hpf Ur Squamous Epith Cells 0-5 (0-5) /hpf Urine Bacteria Few (FEW) /hpf Urine Mucus Not seen (FEW) /hpf - Re-Assessments/Exams Free Text/Narrative Re-Assessment/Exam: 03/12/20 20:51 Patient's work-up was found to be overall normal. Her hematology is normal. hCG is elevated appropriately for her gestation. She is a positive, therefore there is no need for RhoGam. Pelvic exam shows a closed cervix with a small amount of blood in the vagina. Patient states that the bleeding has essentially stopped. Transvaginal ultrasound shows a single viable intrauterine gestation measurements correlate with the previous ultrasound. Estimated due date is still October 25, 2020. She does have a left ovarian cyst that has decreased in size from previous study. The second cyst seen on the prior study has resolved. Ultrasound did also show a small subchorionic hemorrhage. Urinalysis was negative for any signs of infection. There is blood in the urine which is likely cross contamination from her vaginal bleeding. Her next appointment with her GLOBAL SALES MANAGER is currently April 01. Recommend that she call his office tomorrow morning to discuss today's occurrences. Discussed return precautions. Discharge instructions as documented. Departure - Departure Time of Disposition: 20:56 Disposition: Home, Self-Care 01 Condition: Good Clinical Impression: Subchorionic hemorrhage in first trimester Qualifiers: Fetus number: single or unspecified fetus Qualified Code(s): O41.8X10 - Other specified disorders of amniotic fluid and membranes, first trimester, not applicable or unspecified; O46.8X1 - Other antepartum hemorrhage, first trimester - Discharge Information *PRESCRIPTION DRUG MONITORING PROGRAM REVIEWED*: No *COPY OF PRESCRIPTION DRUG MONITORING REPORT IN PATIENT ANGELIQUE: No Instructions: Threatened Miscarriage, [id number], Subchorionic Hematoma Referrals: Carl Zapata MD [Primary Care Provider] - Forms: ED Department Discharge Additional Instructions: You were seen in the emergency department for an acute onset of vaginal bleeding. While in the emergency department, blood work, urinalysis, and an ultrasound was completed. The work-up was found to be overall normal, however there is a small subchorionic hemorrhage within the uterus which is possibly the cause of the bleeding you experience this evening. Recommend that you go home and rest. Abstain from sexual activity and physical exertion. Also recommend that you call your GLOBAL SALES MANAGER provider tomorrow morning to discuss today' s occurrences to see if he would like to see you prior to your next scheduled appointment. If your bleeding should continue to the point where you are saturating more than a pad an hour for 2 or more hours or you experience any other symptoms of concern, recommend that you return to the emergency department for reevaluation. Sepsis Event Note - Evaluation Sepsis Screening Result: No Definite Risk - Focused Exam Vital Signs: Vital Signs Temp Pulse Resp BP Pulse Ox 03/12/20 18:50 98.7 F 71 20 132/89 100 Date Exam was Performed: 03/12/20 Time Exam was Performed: 20:51 - My Orders Last 24 Hours: My Active Orders 03/12/20 19:20 ABO/RH TYPE [BBK] Stat - Assessment/Plan Last 24 Hours: My Active Orders 03/12/20 19:20 ABO/RH TYPE [BBK] Stat
--- NOTE | 2020-03-12 20:24 | US ---
First trimester obstetrical ultrasound: Multiple real-time images were obtained transabdominally and transvaginally. Comparison: Previous obstetrical ultrasound of 03/01/20. Dates: Current ultrasound: ARIAN 10/22/20, gestational age 8 weeks 0 days Earliest ultrasound (03/01/20): ARIAN 10/25/20, gestational age 7 weeks 4 days Single intrauterine gestation is seen. Amniotic fluid is normal. Small pole is seen. Minimal subchorionic hemorrhage is seen. Cyst is noted within the left ovary measuring 4.3 cm in size. Right ovary not visualized. Small nabothian cyst is noted. Measurements: [place]-rump length: 1.53 cm - 8 weeks 0 days Heart rate: 168 BPM Impression: 1. Single viable intrauterine gestation. Dates as noted above. 2. Left ovarian cyst measuring 4.3 cm. This measured 7.1 cm on prior study and has decreased in size. Second cyst that was seen on prior study has resolved. 3. Small subchorionic hemorrhage. Diagnostic code #3 Study was dictated in MDT
== END 2020-03-12 21:33 | disposition home or self-care (01) ==
LOC: JD.ED 18:28
DX: O20.8 Other hemorrhage in early pregnancy (principal); O99.281 Endocrine, nutritional and metabolic diseases complicating pregnancy, first trimester; E66.9 Obesity, unspecified; O10.911 Unspecified pre-existing hypertension complicating pregnancy, first trimester; Z3A.08 8 weeks gestation of pregnancy
CPT/HCPCS: 36415; 76817; 76817-26; 80053; 81001; 84702; 85025; 86900; 86901; 99282; 99284-25

== ENCOUNTER 2021-10-31 11:28 | Emergency (ER) | payer BC ==
[2021-10-31 11:41] VITALS: BP 158/70; PULSE 84
[2021-10-31] MEDS: Sodium Chloride 0.9% 10 ML Syringe FLUSH PRN (12:53)
[2021-10-31] MEDS: Ondansetron 4 MG/2 ML SDV IVPUSH ONE (12:53)
[2021-10-31] MEDS: Sodium Chloride 0.9% 1,000 ML IV STA (12:53)
[2021-10-31 12:56] LABS: CORONAVIRUS COVID-19 NAA NEGATIVE (NEGATIVE)
== END 2021-10-31 14:56 | disposition home or self-care (01) ==
LOC: JD.ED 11:28
DX: R10.31 Right lower quadrant pain (principal); I10 Essential (primary) hypertension; E66.9 Obesity, unspecified; Z68.30 Body mass index [BMI] 30.0-30.9, adult; Z79.82 Long term (current) use of aspirin; Z79.899 Other long term (current) drug therapy; Z20.822 Contact with and (suspected) exposure to COVID-19
CPT/HCPCS: 0240U; 36415; 76705; 76705-26; 80053; 81001; 85025; 86140; 96374; 99284-25; J2405; J7030

== ENCOUNTER 2022-03-17 04:58 | Inpatient (IN) | payer BC ==
[~2022-03-17 04:58] MED LIST changes: -Dexamethasone 4 MG/ML 5 ML MDV ONE; -HYDROmorphone 1 MG/ML Syringe ONE; -Ketorolac 30 MG/ML SDV ONE; -Lactated Ringers 1,000 ML ONE; -Lidocaine 1% 4 ML ONE; -Lidocaine 1%/Sod Bicarbonate in NS 8.4% 1 ML Syringe PRN; -Midazolam 1 MG/ML 2 ML SDV ONE; -Ondansetron 4 MG/2 ML SDV ONE; +Oxytocin/Lactated Ringers 20 UNIT/1,000 ML BAG IV SCH; -Propofol 200 MG/20 ML SDV ONE; -ceFAZolin 1 GM Vial ONE; -fentaNYL 100 MCG/2 ML SDV ONE; -fentaNYL 250 MCG/5 ML SDV ONE
[2022-03-17] MEDS ORDERED: Ondansetron 4 MG/2 ML SDV ONE (06:23)
[2022-03-17] MEDS ORDERED: ceFAZolin 1 GM Vial ONE (06:23)
[2022-03-17] MEDS ORDERED: Lactated Ringers 1,000 ML ONE (06:23)
[2022-03-17] MEDS ORDERED: Morphine PF 10 MG/10 ML SDV ONE (06:23)
[2022-03-17] MEDS ORDERED: Ketorolac 30 MG/ML SDV ONE (06:23)
[2022-03-17] MEDS ORDERED: Oxytocin 10 Units/1 ML SDV ONE (06:23)
[2022-03-17] MEDS ORDERED: Metoclopramide 10 MG/2 ML SDV IVPUSH ONE ×2 (06:30→06:45)
[2022-03-17] MEDS ORDERED: Citric Acid/Sodium Citrate Solution 30 ML Cup PO ONE ×2 (06:30→06:45)
[2022-03-17] MEDS: Lactated Ringers 1,000 ML IV SCH ×2 (06:41→06:43)
[2022-03-17] MEDS ORDERED: Bupivacaine 0.5% 30 ML SDV ONE (06:56)
[2022-03-17] MEDS ORDERED: Phenylephrine 1% 10 MG/ML SDV ONE (07:11)
[2022-03-17] MEDS ORDERED: Sodium Chloride 0.9% 100 ML ONE (07:11)
[2022-03-17] MEDS ORDERED: fentaNYL 100 MCG/2 ML SDV ONE (08:16)
[2022-03-17] MEDS ORDERED: Sodium Chloride 0.9% 10 ML Syringe FLUSH SCH (09:00)
[2022-03-17] MEDS ORDERED: Labetalol 100 MG Tab PO PRN (09:04)
[2022-03-17] MEDS ORDERED: Meperidine 50 MG/ML Vial IVPUSH PRN (09:07)
[2022-03-17] MEDS ORDERED: fentaNYL 100 MCG/2 ML SDV IVPUSH PRN (09:07)
[2022-03-17] MEDS ORDERED: Ondansetron 4 MG/2 ML SDV IVPUSH PRN (09:07)
[2022-03-17] MEDS ORDERED: diphenhydrAMINE 50 MG/ML SDV IVPUSH PRN ×2 (09:07→10:18)
[2022-03-17] MEDS ORDERED: ePHEDrine 50 MG/ML SDV IVPUSH PRN (10:18)
[2022-03-17] MEDS ORDERED: Ondansetron 4 MG/2 ML SDV IV PRN (10:18)
[2022-03-17] MEDS ORDERED: Acetaminophen/oxyCODONE 325-5 MG Tab PO PRN ×2 (10:18)
[2022-03-17] MEDS ORDERED: Dextrose 5%-Lactated Ringers 1,000 ML IV SCH (10:18)
[2022-03-17] MEDS ORDERED: Naloxone 0.4 MG/ML SDV IVPUSH PRN (10:18)
[2022-03-17] MEDS ORDERED: Ibuprofen 800 MG Tab PO SCH (13:30)
[2022-03-17] MEDS: Simethicone 80 MG Tab.Chew PO SCH ×3 (13:59→21:15)
[2022-03-17] MEDS: Docusate Sodium 100 MG Cap PO SCH ×2 (14:38→22:02)
[2022-03-17] MEDS: Ibuprofen 800 MG Tab PO SCH ×2 (15:33→22:53)
[2022-03-18] MEDS: Ibuprofen 800 MG Tab PO SCH ×3 (07:02→23:26)
[2022-03-18] MEDS: Simethicone 80 MG Tab.Chew PO SCH ×4 (09:01→21:49)
[2022-03-18] MEDS: Prenatal Multivitamin with Calcium/Folic Acid/Iron Tab PO SCH (09:01)
[2022-03-18] MEDS: Docusate Sodium 100 MG Cap PO SCH ×3 (09:02→21:49)
[2022-03-18] MEDS: Acetaminophen 325 MG Tab PO PRN ×2 (12:33→21:48)
[2022-03-19] MEDS: Acetaminophen 325 MG Tab PO PRN (04:22)
[2022-03-19] MEDS: Simethicone 80 MG Tab.Chew PO SCH (09:08)
[2022-03-19] MEDS: Docusate Sodium 100 MG Cap PO SCH ×2 (09:09→11:29)
[2022-03-19] MEDS: Prenatal Multivitamin with Calcium/Folic Acid/Iron Tab PO SCH (09:09)
[2022-03-19] MEDS: Ibuprofen 800 MG Tab PO SCH (09:09)
[2022-03-19 11:22] VITALS: BP 140/87; PULSE 79
== END 2022-03-19 10:40 | disposition home or self-care (01) | DRG 540 ==
LOC: JD.OB 04:58
PROVIDERS: ADMIT Obstetrics & Gynecology; ATTEND Obstetrics & Gynecology
PROC: 10D00Z1 Extraction of Products of Conception, Low, Open Approach (ICD-10-PCS; principal; 2022-03-17)
DX: O34.211 Maternal care for low transverse scar from previous cesarean delivery (principal); Z37.0 Single live birth; O10.02 Pre-existing essential hypertension complicating childbirth; O13.4 Gestational [pregnancy-induced] hypertension without significant proteinuria, complicating childbirth; O99.214 Obesity complicating childbirth; Z3A.37 37 weeks gestation of pregnancy
CPT/HCPCS: 01961; 36415; 59025; 85025; 86592; 86803; 86850; 86900; 86901; 87340; 94762; A9270-GY; G0475; J0690; J1885; J2274; J2370; J2405; J2590; J2765; J3010; J3490; J7120; J7121

== ENCOUNTER 2022-04-11 05:55 | Emergency (ER) | payer BC ==
[2022-04-11] MEDS ORDERED: NIFEdipine 10 MG Cap PO ONE ×2 (10:52→15:41)
[2022-04-11] MEDS ORDERED: LORazepam 2 MG/ML SDV IVPUSH ONE (11:22)
[2022-04-11] MEDS ORDERED: Acetaminophen 325 MG Tab PO ONE (13:28)
[2022-04-11 13:39] VITALS: PULSE 81
[2022-04-11] MEDS ORDERED: diphenhydrAMINE 50 MG/ML SDV IVPUSH ONE (14:46)
[2022-04-11] MEDS: Ondansetron 4 MG/2 ML SDV IVPUSH ONE (14:51)
[2022-04-11 17:21] VITALS: BP 129/67
== END 2022-04-11 17:30 | disposition home or self-care (01) ==
LOC: JD.ED 05:55
DX: O13.9 Gestational [pregnancy-induced] hypertension without significant proteinuria, unspecified trimester (principal); Z3A.00 Weeks of gestation of pregnancy not specified
CPT/HCPCS: 36415; 70450; 80053; 81001; 85025; 87086; 96374; 96375; 99284; A9270; J1200; J2060; J2405

== ENCOUNTER 2023-11-16 05:02 | Inpatient (IN) | payer BC ==
[~2023-11-16 05:02] MED LIST changes: -Lactated Ringers 1,000 ML IV SCH; -Oxytocin/Lactated Ringers 20 UNIT/1,000 ML BAG IV SCH; +Oxytocin/Lactated Ringers 30 UNIT/500 ML BAG IV SCH
[2023-11-16 05:37] LABS: BASOPHILS PERCENT AUTO 0.4 % (0.0-1.0); EOSINOPHILS ABSOLUTE AUTO 0.1 K/mm3 (0.0-0.4); EOSINOPHILS PERCENT AUTO 1.6 % (0.0-6.0); HEMATOCRIT 33.3 % (37.0-47.0); HEMOGLOBIN 11.3 gm/dl (12.0-16.0); IMMATURE GRAN ABSOLUTE AUTO 0.05 K/mm3 (0.00-0.05); IMMATURE GRAN PERCENT AUTO 0.7 % (0.0-0.4); LYMPHOCYTES ABSOLUTE AUTO 1.5 K/mm3 (1.0-4.8); LYMPHOCYTES PERCENT AUTO 19.8 % (24.0-44.0); MEAN CORPUSCULAR HEMOGLOBIN 30.1 pg (28.0-32.0); MEAN CORPUSCULAR HGB CONC 33.9 g/dl (32.0-36.0); MEAN CORPUSCULAR VOLUME 88.6 fl (83.0-99.0); MEAN PLATELET VOLUME 9.3 fl (9.4-12.3); MONOCYTES ABSOLUTE AUTO 0.4 K/mm3 (0.0-0.8); MONOCYTES PERCENT AUTO 5.3 % (0.0-8.0); NEUTROPHILS ABSOLUTE AUTO 5.6 K/mm3 (1.8-7.7); NEUTROPHILS PERCENT AUTO 72.2 % (41.0-71.0); PLATELET COUNT,PLT 212 K/mm3 (150-400); RED BLOOD CELL COUNT 3.76 M/mm3 (4.10-5.30); WHITE BLOOD CELL COUNT,WBC 7.69 K/mm3 (3.9-11.3)
[2023-11-16] MEDS ORDERED: Metoclopramide 10 MG/2 ML SDV IVPUSH ONE (05:37)
[2023-11-16] MEDS ORDERED: Citric Acid/Sodium Citrate Solution 30 ML Cup PO ONE (05:38)
[2023-11-16] MEDS ORDERED: Lactated Ringers 1,000 ML IV SCH ×2 (05:45→06:00)
[2023-11-16] MEDS ORDERED: Morphine PF 10 MG/10 ML SDV ONE (05:56)
[2023-11-16] MEDS ORDERED: Oxytocin 10 Units/1 ML SDV ONE (05:56)
[2023-11-16] MEDS ORDERED: fentaNYL 100 MCG/2 ML SDV ONE (05:56)
[2023-11-16] MEDS ORDERED: ceFAZolin 2 GM Vial ONE (06:01)
[2023-11-16] MEDS ORDERED: Bupivacaine 0.5% 30 ML SDV ONE (07:10)
[2023-11-16] MEDS ORDERED: ceFAZolin 1 GM in Sodium Chloride 0.9% 50 ML IV ONE (07:30)
[2023-11-16] MEDS ORDERED: ceFAZolin 2 GM in Sodium Chloride 0.9% 50 ML IV ONE (07:30)
[2023-11-16] MEDS ORDERED: Phenylephrine 1% 10 MG/ML SDV ONE (07:45)
[2023-11-16] MEDS ORDERED: Lactated Ringers 1,000 ML ONE ×2 (07:49→08:48)
[2023-11-16] MEDS ORDERED: Ondansetron 4 MG/2 ML SDV ONE (08:08)
[2023-11-16] MEDS ORDERED: fentaNYL 100 MCG/2 ML SDV IVPUSH PRN (08:12)
[2023-11-16] MEDS ORDERED: Ondansetron 4 MG/2 ML SDV IVPUSH PRN (08:12)
[2023-11-16] MEDS ORDERED: diphenhydrAMINE 50 MG/ML SDV IVPUSH PRN ×2 (08:12→09:48)
[2023-11-16] MEDS ORDERED: Ketorolac 30 MG/ML SDV ONE (08:35)
[2023-11-16] MEDS ORDERED: Sodium Chloride 0.9% 10 ML Syringe FLUSH SCH (09:00)
[2023-11-16] MEDS ORDERED: ePHEDrine 50 MG/ML SDV IVPUSH PRN (09:48)
[2023-11-16] MEDS ORDERED: Acetaminophen/oxyCODONE 325-5 MG Tab PO PRN ×2 (09:48)
[2023-11-16] MEDS ORDERED: Dextrose 5%-Lactated Ringers 1,000 ML IV SCH (09:48)
[2023-11-16] MEDS ORDERED: Naloxone 0.4 MG/ML SDV IVPUSH PRN (09:48)
[2023-11-16] MEDS ORDERED: Oxytocin/Lactated Ringers 30 UNIT/500 ML BAG IV SCH (09:48)
[2023-11-16] MEDS: Ondansetron 4 MG Tab.DIS PO PRN ×2 (10:31→14:46)
[2023-11-16] MEDS: Ketorolac 30 MG/ML SDV IVPUSH SCH ×2 (14:46→21:06)
[2023-11-16] MEDS ORDERED: Lactated Ringers 1,000 ML IV ONE (15:19)
[2023-11-16] MEDS ORDERED: Promethazine 25 MG Tab PO ONE (15:30)
[2023-11-16] MEDS ORDERED: Ondansetron 4 MG Tab.DIS PO SCH ×2 (18:00→19:00)
[2023-11-16] MEDS ORDERED: Promethazine 25 MG Tab PO SCH ×2 (18:00→21:00)
[2023-11-16] MEDS ORDERED: Magnesium Hydroxide 400 MG/5 ML Susp 30 ML Cup PO PRN (21:00)
[2023-11-16] MEDS: Labetalol 100 MG Tab PO SCH (21:03)
[2023-11-16] MEDS: Docusate Sodium 100 MG Cap PO SCH (21:03)
[2023-11-16] MEDS ORDERED: Ondansetron 4 MG Tab.DIS PO PRN (21:55)
[2023-11-16] MEDS ORDERED: Promethazine 25 MG Tab PO PRN (22:02)
[2023-11-17] MEDS: Ketorolac 30 MG/ML SDV IVPUSH SCH (03:22)
[2023-11-17 07:49] LABS: BASOPHILS PERCENT AUTO 0.5 % (0.0-1.0); EOSINOPHILS ABSOLUTE AUTO 0.1 K/mm3 (0.0-0.4); EOSINOPHILS PERCENT AUTO 1.1 % (0.0-6.0); HEMOGLOBIN 9.8 gm/dl (12.0-16.0); IMMATURE GRAN ABSOLUTE AUTO 0.05 K/mm3 (0.00-0.05); IMMATURE GRAN PERCENT AUTO 0.6 % (0.0-0.4); LYMPHOCYTES ABSOLUTE AUTO 1.6 K/mm3 (1.0-4.8); LYMPHOCYTES PERCENT AUTO 18.7 % (24.0-44.0); MEAN CORPUSCULAR HEMOGLOBIN 30.1 pg (28.0-32.0); MEAN CORPUSCULAR HGB CONC 32.7 g/dl (32.0-36.0); MEAN PLATELET VOLUME 9.6 fl (9.4-12.3); MONOCYTES ABSOLUTE AUTO 0.5 K/mm3 (0.0-0.8); MONOCYTES PERCENT AUTO 6.2 % (0.0-8.0); NEUTROPHILS ABSOLUTE AUTO 6.2 K/mm3 (1.8-7.7); NEUTROPHILS PERCENT AUTO 72.9 % (41.0-71.0); PLATELET COUNT,PLT 207 K/mm3 (150-400); RED BLOOD CELL COUNT 3.26 M/mm3 (4.10-5.30); WHITE BLOOD CELL COUNT,WBC 8.44 K/mm3 (3.9-11.3)
[2023-11-17] MEDS ORDERED: oxyCODONE 5 MG Tab PO PRN ×2 (08:27)
[2023-11-17] MEDS: Prenatal Multivitamin with Calcium/Folic Acid/Iron Tab PO SCH (08:53)
[2023-11-17] MEDS: Docusate Sodium 100 MG Cap PO SCH ×2 (08:53→21:33)
[2023-11-17] MEDS: Labetalol 100 MG Tab PO SCH ×2 (08:54→21:34)
[2023-11-17] MEDS: Ibuprofen 600 MG Tab PO PRN ×2 (13:29→21:32)
[2023-11-17] MEDS: Acetaminophen 325 MG Tab PO PRN ×2 (17:42→21:32)
[2023-11-18] MEDS: Acetaminophen 325 MG Tab PO PRN (04:53)
[2023-11-18] MEDS: Ibuprofen 600 MG Tab PO PRN (04:53)
[2023-11-18] MEDS: Labetalol 100 MG Tab PO SCH (09:26)
[2023-11-18] MEDS: Prenatal Multivitamin with Calcium/Folic Acid/Iron Tab PO SCH (09:27)
[2023-11-18 17:38] VITALS: BP 148/84; PULSE 67
== END 2023-11-18 16:30 | disposition home or self-care (01) | DRG 540 ==
LOC: JD.OB 05:02 → UNDOADMIN 05:02
PROVIDERS: ADMIT Obstetrics & Gynecology; ATTEND Obstetrics & Gynecology
PROC: 10D00Z1 Extraction of Products of Conception, Low, Open Approach (ICD-10-PCS; principal; 2023-11-16 08:00)
DX: O34.211 Maternal care for low transverse scar from previous cesarean delivery (principal); O99.214 Obesity complicating childbirth; O10.92 Unspecified pre-existing hypertension complicating childbirth; P02.5 Newborn affected by other compression of umbilical cord; Z37.0 Single live birth; Z3A.38 38 weeks gestation of pregnancy; Z98.890 Other specified postprocedural states
CPT/HCPCS: 36415; 59025; 85025; 86592; 86850; 86900; 86901; 94762; A9270-GY; J0665; J0690; J1200; J1885; J2274; J2371; J2405; J2590; J2765; J3010; J7120; J7121; J8597

== ENCOUNTER 2023-12-07 21:32 | Observation (INO) | payer BC ==
[2023-12-07] MEDS: Magnesium Sulfate/Water 2 GM in Premix Bag 1 BAG IV ONE (23:00)
[2023-12-07] MEDS: Sodium Chloride 0.9% 10 ML Syringe FLUSH PRN (23:00)
[2023-12-07 23:09] LABS: APPEARANCE,URINE CLEAR (Clear); BILIRUBIN,URINE NEGATIVE (Negative); COLOR,URINE YELLOW (Yellow); GLUCOSE,URINE NEGATIVE (Negative); KETONES,URINE NEGATIVE (Negative); LEUKOCYTE ESTERASE,URINE 2+ (Negative); NITRITE,URINE NEGATIVE (Negative); OCCULT BLOOD,URINE 2+ (Negative); PH,URINE 6.5 (5.0-8.0); PROTEIN,URINE NEGATIVE (Negative); UROBILINOGEN,URINE 0.2 (0.2-1.0)
[2023-12-07 23:11] LABS: BASOPHILS ABSOLUTE AUTO 0.1 K/mm3 (0.0-0.2); BASOPHILS PERCENT AUTO 0.9 % (0.0-1.0); EOSINOPHILS ABSOLUTE AUTO 0.3 K/mm3 (0.0-0.4); EOSINOPHILS PERCENT AUTO 4.9 % (0.0-6.0); HEMATOCRIT 40.5 % (37.0-47.0); HEMOGLOBIN 13.8 gm/dl (12.0-16.0); IMMATURE GRAN ABSOLUTE AUTO 0.03 K/mm3 (0.00-0.05); IMMATURE GRAN PERCENT AUTO 0.5 % (0.0-0.4); LYMPHOCYTES ABSOLUTE AUTO 2.7 K/mm3 (1.0-4.8); LYMPHOCYTES PERCENT AUTO 41.1 % (24.0-44.0); MEAN CORPUSCULAR HEMOGLOBIN 28.9 pg (28.0-32.0); MEAN CORPUSCULAR HGB CONC 34.1 g/dl (32.0-36.0); MEAN CORPUSCULAR VOLUME 84.7 fl (83.0-99.0); MEAN PLATELET VOLUME 8.8 fl (9.4-12.3); MONOCYTES ABSOLUTE AUTO 0.4 K/mm3 (0.0-0.8); MONOCYTES PERCENT AUTO 5.6 % (0.0-8.0); NEUTROPHILS ABSOLUTE AUTO 3.1 K/mm3 (1.8-7.7); PLATELET COUNT,PLT 341 K/mm3 (150-400); RED BLOOD CELL COUNT 4.78 M/mm3 (4.10-5.30); WHITE BLOOD CELL COUNT,WBC 6.57 K/mm3 (3.9-11.3)
[2023-12-07 23:20] LABS: BACTERIA,URINE FEW /hpf (FEW); MUCUS,URINE NOT SEEN /hpf (FEW); SQUAMOUS EPITHELIAL CELLS,UR 0-5 /hpf (0-5)
[2023-12-07 23:21] LABS: A/G RATIO 1.1 (1-2); ALBUMIN 3.7 g/dl (3.4-5.0); ANION GAP 16.3 (5-15); BILIRUBIN TOTAL 0.2 mg/dL (0.2-1.0); BUN/CREATININE RATIO 15.8 (14-18); CALCIUM 8.8 mg/dL (8.5-10.1); CREATININE 1.2 mg/dL (0.55-1.02); EST CRCL DRUG DOSING (CG) 58.32 mL/min; MAGNESIUM 1.9 mg/dL (1.8-2.4); PROTEIN TOTAL,TP 7.1 g/dl (6.4-8.2)
[2023-12-07 23:31] LABS: POTASSIUM,K 3.3 mEq/L (3.5-5.1)
[2023-12-08] MEDS ORDERED: Acetaminophen 325 MG Tab PO PRN (00:06)
[2023-12-08] MEDS ORDERED: Ketorolac 30 MG/ML SDV IVPUSH PRN (00:07)
[2023-12-08] MEDS ORDERED: Naloxone 0.4 MG/ML SDV IVPUSH PRN (00:08)
[2023-12-08] MEDS ORDERED: Ondansetron 4 MG/2 ML SDV IV PRN (00:08)
[2023-12-08] MEDS: Labetalol 100 MG/20 ML MDV IVPUSH ONE (00:08)
[2023-12-08] MEDS ORDERED: Acetaminophen/oxyCODONE 325-5 MG Tab PO PRN ×2 (00:08)
[2023-12-08 07:13] VITALS: BP 130/78; PULSE 71
[2023-12-08] MEDS ORDERED: Labetalol 100 MG Tab PO SCH (09:00)
== END 2023-12-08 07:45 | disposition home or self-care (01) ==
LOC: JD.ED 21:32 → JD.OB 12-08 00:08
PROVIDERS: ADMIT Obstetrics & Gynecology; ATTEND Obstetrics & Gynecology
DX: I10 Essential (primary) hypertension (principal); K21.9 Gastro-esophageal reflux disease without esophagitis; E66.9 Obesity, unspecified; Z79.899 Other long term (current) drug therapy
CPT/HCPCS: 36415; 80053; 81001; 83735; 85025; 96365; 96366; 96375; 99284; J1921; J3475; J3490

== ENCOUNTER 2025-09-23 05:07 | Observation (INO) | payer BC ==
[~2025-09-23 05:07] MED LIST changes: +Citric Acid/Sodium Citrate Solution 30 ML Cup PO ONE; +Lactated Ringers 1,000 ML IV SCH; +Oxytocin/0.9 % Sodium Chloride 30 UNIT/500 ML BAG IV SCH; -Oxytocin/Lactated Ringers 30 UNIT/500 ML BAG IV SCH; +Sodium Chloride 0.9% 10 ML Syringe FLUSH SCH
[2025-09-23 05:45] LABS: BASOPHILS ABSOLUTE AUTO 0.0 K/mm3 (0.0-0.2); BASOPHILS PERCENT AUTO 0.5 % (0.0-1.0); EOSINOPHILS ABSOLUTE AUTO 0.1 K/mm3 (0.0-0.4); EOSINOPHILS PERCENT AUTO 1.8 % (0.0-6.0); IMMATURE GRAN ABSOLUTE AUTO 0.03 K/mm3 (0.00-0.05); IMMATURE GRAN PERCENT AUTO 0.5 % (0.0-0.4); LYMPHOCYTES ABSOLUTE AUTO 1.6 K/mm3 (1.0-4.8); LYMPHOCYTES PERCENT AUTO 25.2 % (24.0-44.0); MEAN PLATELET VOLUME 9.6 fl (9.4-12.3); MONOCYTES ABSOLUTE AUTO 0.3 K/mm3 (0.0-0.8); MONOCYTES PERCENT AUTO 5.5 % (0.0-8.0); NEUTROPHILS ABSOLUTE AUTO 4.1 K/mm3 (1.8-7.7); NEUTROPHILS PERCENT AUTO 66.5 % (41.0-71.0); NRBC ABSOLUTE 0.00 (0.00-0.02); NRBC PERCENT 0.0 % (0.0-0.2); PLATELET COUNT,PLT 209 K/mm3 (150-400); RED BLOOD CELL COUNT 3.80 M/mm3 (4.10-5.30); WHITE BLOOD CELL COUNT,WBC 6.15 K/mm3 (3.9-11.3)
[2025-09-23] MEDS: Lactated Ringers 1,000 ML IV SCH (05:51)
[2025-09-23] MEDS ORDERED: Ondansetron 4 MG/2 ML SDV ONE (06:48)
[2025-09-23] MEDS ORDERED: Phenylephrine 1% 10 MG/ML SDV ONE (06:48)
[2025-09-23] MEDS: Citric Acid/Sodium Citrate Solution 30 ML Cup PO ONE (07:23)
[2025-09-23] MEDS ORDERED: droPERidol 2.5 MG/ML SDV ONE (08:12)
[2025-09-23] MEDS ORDERED: Ketorolac 30 MG/ML SDV ONE (08:15)
[2025-09-23] MEDS ORDERED: Prenatal Multivitamin with Calcium/Folic Acid/Iron Tab PO SCH (10:28)
[2025-09-23] MEDS ORDERED: Ondansetron 4 MG/2 ML SDV IV PRN (10:28)
[2025-09-23] MEDS ORDERED: Naloxone 0.4 MG/ML SDV IVPUSH PRN (10:28)
[2025-09-23] MEDS ORDERED: Oxytocin/0.9 % Sodium Chloride 30 UNIT/500 ML BAG IV SCH (10:28)
[2025-09-23] MEDS ORDERED: ePHEDrine 50 MG/ML SDV IVPUSH PRN (10:28)
[2025-09-23] MEDS ORDERED: Ondansetron 4 MG Tab.DIS PO PRN (10:28)
[2025-09-23] MEDS: diphenhydrAMINE 50 MG/ML SDV IVPUSH PRN (13:00)
[2025-09-23] MEDS: Lactated Ringers 1,000 ML IV ONE (13:21)
[2025-09-23] MEDS: Ketorolac 30 MG/ML SDV IVPUSH SCH (15:01)
[2025-09-23 15:09] LABS: MEAN PLATELET VOLUME 9.8 fl (9.4-12.3); NRBC ABSOLUTE 0.00 (0.00-0.02); NRBC PERCENT 0.0 % (0.0-0.2); PLATELET COUNT,PLT 182 K/mm3 (150-400); RED BLOOD CELL COUNT 3.59 M/mm3 (4.10-5.30); WHITE BLOOD CELL COUNT,WBC 10.31 K/mm3 (3.9-11.3)
[2025-09-23] MEDS ORDERED: Magnesium Hydroxide 400 MG/5 ML Susp 30 ML Cup PO PRN (21:00)
[2025-09-23] MEDS: Prenatal Multivitamin with Calcium/Folic Acid/Iron Tab PO SCH (21:12)
[2025-09-24 05:40] LABS: MEAN PLATELET VOLUME 10.0 fl (9.4-12.3); NRBC ABSOLUTE 0.00 (0.00-0.02); NRBC PERCENT 0.0 % (0.0-0.2); PLATELET COUNT,PLT 176 K/mm3 (150-400); RED BLOOD CELL COUNT 3.50 M/mm3 (4.10-5.30); WHITE BLOOD CELL COUNT,WBC 7.83 K/mm3 (3.9-11.3)
[2025-09-24 23:51] VITALS: BP 138/70; PULSE 72
== END 2025-09-24 20:58 | disposition home or self-care (01) ==
LOC: JD.OB 05:07 → INTOOBSV 05:07
PROVIDERS: ADMIT Obstetrics & Gynecology; ATTEND Obstetrics & Gynecology
DX: O82 Encounter for cesarean delivery without indication (principal); Z37.0 Single live birth
CPT/HCPCS: 36415; 59025; 59514; 85025; 85027; 86592; 86850; 86900; 86901; A9270; J0690; J1200; J1790; J1885; J2371; J2405; J2765; J7120; J7121; J0665; J1171